=== PATIENT | male | born 1970 | race Caucasian/White ===

== ENCOUNTER 2017-11-29 10:30 | Outpatient (CLI) | payer BC ==
[2017-11-29 11:08] LABS: Hemoglobin 15.1 g/dL (14.0-18.0); Mean Corpuscular Hemoglobin 29.6 pg (27.0-31.0); Mean Corpuscular Volume 89.8 fL (78.0-98.0); Mean Platelet Volume 7.7 fL (7.4-10.4); Platelet Count 287 thou/uL (130-400); RBC Distribution Width 12.2 % (11.5-14.5); Red Blood Cell (RBC) Count 5.12 mill/uL (4.70-6.10); White Blood Cell (WBC) Count 13.3 thou/uL (4.8-10.8)
== END 2017-11-29 10:31 | disposition home or self-care (01) ==
LOC: LABBT 10:30
PROVIDERS: ATTEND Orthopaedic Surgery
DX: Z01.812 Encounter for preprocedural laboratory examination (principal); S83.241A Other tear of medial meniscus, current injury, right knee, initial encounter
CPT/HCPCS: 85027

== ENCOUNTER 2017-12-01 08:36 | Day surgery (SDC) | payer BC ==
[2017-11-29 10:35] VITALS: BMI 43.2
[2017-12-01] MEDS ORDERED: CEFAZOLIN/Water 2 GM/20 ML SYRINGE ONE (09:21)
[2017-12-01] MEDS ORDERED: Bupivacaine/Epinephrine 0.25% 30 ML VIAL ONE (12:14)
[2017-12-01] MEDS ORDERED: Midazolam HCl 2 mg/2 ml Vial ONE (12:18)
[2017-12-01] MEDS ORDERED: Fentanyl 100 MCG/2 ML VIAL ONE ×2 (12:18→14:26)
[2017-12-01] MEDS ORDERED: Lidocaine 1% PF 5 ML VIAL ONE (13:02)
[2017-12-01] MEDS ORDERED: Ondansetron HCl/PF 4 MG/2 ML Vial ONE (13:02)
[2017-12-01] MEDS ORDERED: Dexamethasone 20 MG/5 ML VIAL ONE (13:02)
[2017-12-01] MEDS ORDERED: Ketorolac Tromethamine 30 MG/ML VIAL ONE (13:02)
[2017-12-01] MEDS ORDERED: PROPOFOL 200 MG/20 ML VIAL ONE (13:02)
[2017-12-01] MEDS ORDERED: Lidocaine 1% (PF) 30 ML VIAL ONE (13:27)
--- NOTE | 2017-12-01 14:08 | OP ---
DATE OF PROCEDURE: 12/01/2017 PREOPERATIVE DIAGNOSES: Right medial meniscus tear with a loose body MCL sprain. POSTOPERATIVE DIAGNOSES: Right medial meniscus tear, radial component with no loose body found, no cartilage loose body found or donor site noted. Crystalline deposition within the knee. STAFF: Jaquan Turpin M.D. NURSE GENERAL DUTY: None. ANESTHESIA: DR Atkinson. The patient received LMA with 30 mL of Marcaine preprocedure and 30 mL of lidocaine post procedure intraarticular. ANTIBIOTICS: Ancef 2 grams. IMPLANTS: None. COMPLICATIONS: None. HISTORY OF PRESENT ILLNESS: Mr. Granados is a pleasant 47-year-old male who jumped over a small dog gate, hurt his knee on the . Range of motion is worse. The patient had MRI ordered, had 7-8/10 medial knee pain and some locking symptoms. The patient has been utilizing hinged knee brace. MRI showed a posteromedial meniscus tear, Soto's cyst and what appeared to be an intra-articular loose body. The patient had understood the risks and benefits and arthroscopic evaluation for this part of excision medial meniscus repair. The patient understood the risks of this procedure to include pain, scar, bleeding, infection, damage to vital structures, decreased range of motion or strength, continued pain despite surgical intervention, loss of life or limb, arthritis. The patient understood these risks and benefits and elected to proceed. PROCEDURE IN DETAIL: Time out was performed designating the patient's right lower extremity as the operative site based on site, consents, markings. After completion of the timeout the patient's right lower extremity was prepped and draped in sterile fashion. Tourniquet was brought up and left up for a total of 29 minutes. Anterolateral and lateral working portal were placed. The patient had a fat pad excised. There was some synovitis that was noted throughout the tissue, just red and inflamed tissue and some crystal disease, I do not believe that I injected the patient before of if he had had any injections before this surgery. I looked in the pouch as well as in the gutters for loose body. I looked throughout the joint. I could not palpate or the deliver a loose body or find a lesion would have led to the chondral loose body. The patient had a clean lateral meniscus. The patient had a small little radial tear in his medial meniscus which I was able to evaluate with my probe and debrided back to stable remnant. The patient's meniscus was stable at that point. I then went back and looked again throughout the joint for a loose body which I was not able to see or recover. After completion of my meniscectomy I then washed and closed with 3-0 nylon. I let the tourniquet down after 29 minutes, injected Marcaine in the joint before I started my scope about 10 minutes before I started my scope injected Marcaine before I started with epinephrine, then afterwards I just injected lidocaine. The patient will be weightbearing as tolerated. I will see him back in clinic in about 2 weeks. The patient's outlook is guarded. AYAN
== END 2017-12-01 16:30 | disposition home or self-care (01) ==
LOC: SDC 08:36
PROVIDERS: ATTEND Orthopaedic Surgery
PROC: 0SBC4ZZ Excision of Right Knee Joint, Percutaneous Endoscopic Approach (ICD-10-PCS; principal; 2017-12-01)
DX: S83.241A Other tear of medial meniscus, current injury, right knee, initial encounter (principal); Z79.891 Long term (current) use of opiate analgesic; X50.0XXA Overexertion from strenuous movement or load, initial encounter
CPT/HCPCS: 96374; G8978-GP-CJ; G8979-GP-CJ; G8980-GP-CJ; J2001; J2250; J3010